=== PATIENT | female | born 1980 | race Caucasian/White ===

== ENCOUNTER 2018-04-21 09:00 | Emergency (ER) | payer OTHER ==
[2018-04-21 09:55] LABS: PLATELET COUNT 210 10^3/uL (150-400)
[2018-04-21 10:52] VITALS: BP 120/71
--- NOTE | 2018-04-21 11:09 | EDPHY ---
H & P Stated Complaint: dizzy SOB Time Seen by Provider: 04/21/18 09:18 HPI/ROS: CHIEF COMPLAINT:"I think it is my heart" HISTORY OF PRESENT ILLNESS: This is a 37-year-old female with a history of attention deficit disorder and what she describes as highly functional autism who presents concerned about chest pain that she describes as heaviness. She also has noticed that her heart is going quickly. She feels that her medical problems began in January after she had an episode of hives and a sore throat. She recovered from this and underwent a sinus surgery. She subsequently developed a cough, sore throat, and a rapid heart rate with some occasional chest pain. She has seen a few doctors with these complaints and at some point she was diagnosed with subacute thyroiditis and was advised to rest. She stopped caffeine and also stop the Ritalin that she had been taking. She reports ongoing fatigue and this morning took 5 mg of Ritalin because she felt tired. Her symptoms began after that. She also notes that yesterday she felt short of breath when she was walking up the stairs. REVIEW OF SYSTEMS: A ten system review of systems was performed and is negative with the exception of the items mentioned in the HPI. Past medical history: 1. ADD 2. Autism Past surgical history: Sinus surgery Family history: Her mother has hyperthyroidism and coronary artery disease runs in the family. Social history: She is employed in [employer]. She states that her job is quite stressful. She does not use tobacco or illicit drugs. She rarely drinks alcohol. General Appearance: Alert. Vital signs reviewed. Anxious. Respiratory rate in the mid 20s. Eyes: Pupils equal and round, no conjunctival injection, no discharge. Anicteric. ENT, Mouth: Mucous membranes are moist, no oropharyngeal erythema or edema. Neck: No lymphadenopathy, supple. No thyromegaly. Respiratory: Lungs are clear to auscultation; no wheezes, rales, or rhonchi. Tachypneic. Cardiovascular: Mildly tachycardic on the monitor her--ranging from the 90s to the low 100s, regular; no murmur, rub, or gallop. Gastrointestinal: Abdomen is soft and nontender, no masses or organomegaly, bowel sounds normal. Skin: Warm and dry, no rashes on exposed skin, normal color. Back: Nontender to palpation over the thoracolumbar spine. No CVAT. Extremities: No lower extremity edema, no calf tenderness or swelling. Neurological: Alert and oriented. Moving all four extremities easily and equally. HALEY L. EOM I. Tongue midline. Facial expressions symmetric. Strength is 5 over 5 bilaterally with testing of all major motor groups. Sensation is intact to light touch over all 4 extremities. Psychiatric: Normal affect. - Personal History LMP (Females 10-55): Extended Cycle BCP/Inj Current Tetanus/Diphtheria Vaccine: Unsure Current Tetanus Diphtheria and Acellular Pertussis (TDAP): Unsure - Medical/Surgical History Hx Asthma: No Hx Chronic Respiratory Disease: No Hx Diabetes: No Hx Cardiac Disease: No Hx Renal Disease: No Hx Cirrhosis: No Hx Alcoholism: No Hx HIV/AIDS: No Hx Splenectomy or Spleen Trauma: No Other PMH: autistic spectrum, ADD - Social History Smoking Status: Never smoked Constitutional: Initial Vital Signs Temperature (C) 37.1 C 04/21/18 09:05 Heart Rate 108 H 04/21/18 09:05 Respiratory Rate 24 H 04/21/18 09:05 Blood Pressure 128/83 H 04/21/18 09:05 O2 Sat (%) 100 04/21/18 09:05 O2 Delivery Mode Room Air Allergies/Adverse Reactions: bacitracin [From Neosporin ([id number])] Allergy (Verified 04/21/18 09:04) neomycin [From Neosporin ([id number])] Allergy (Verified 04/21/18 09:04) polymyxin B [From Neosporin ([id number])] Allergy (Verified 04/21/18 09:04) Home Medications: Medication Instructions Recorded ALPRAZolam [Xanax 0.25 MG (*)] 0.25 mg PO TID PRN #6 tab 04/21/18 Depo-Provera 150 mg/ml (*) 04/21/18 Ritalin 10mg (*) 04/21/18 Medical Decision Making - Diagnostics EKG Interpretation: 12 lead EKG is interpreted in muse by emergency department physician. ED Course/Re-evaluation: 37-year-old patient appears quite anxious about today symptoms. I suspect anxiety is the root of her presentation. She was tachypneic and tachycardic at the time of my initial exam. She did not want to wear non-rebreather mask. During the evaluation she complained about tingling in her fingers. Although my initial impression was that this was an anxiety attack, I agreed to proceed with an evaluation of her heart. An EKG was reviewed by me and I do not appreciate signs of an acute coronary syndrome. An initial troponin is normal. I do not think that a chest x-ray will add to the evaluation. CBC and chemistries were also reviewed as was a TSH, which is normal. Her CO2 was noted to be low. I spoke with her about the possibility of this being anxiety and she agrees that her life is quite stressful at this point in time. She does have an appointment with her primary care physician later this week and plans to keep this appointment. Danger signs were reviewed with her. She is given a prescription for small amount of Xanax to use as needed. She was also provided with a work excuse for today. Differential Diagnosis: Chest pain including but not limited to myocardial ischemia, pulmonary embolus, chest wall pain, pleural inflammation, pulmonary infectious causes, and anxiety. - Data Points Laboratory Results: Laboratory Results 04/21/18 09:45 04/21/18 09:45 Point of Care Test Results: Chemistry 04/21/18 09:48 POC Troponin I 0.00 ng/mL ng/mL (0.00-0.08) Departure - Departure Disposition: Home, Routine, Self-Care Clinical Impression: Anxiety Condition: Good Instructions: Anxiety (ED) Additional Instructions: I am giving you some information about anxiety. This is general information, some of which might apply to you. Today's events do sound very much like a panic or anxiety attack. I am giving you a prescription for a few Xanax that you can use if you are feeling anxious and breathing rapidly. When you breathe rapidly and hyperventilate it make your fingers tingly--sometimes you also develop tingling around your mouth and in your feet. I think that taking Ritalin also contributed to today's symptoms. Be sure that you keep her appointment with Dr. Osorio on Thursday. Talk with her about your fatigue. Referrals: Albertina Osorio MD [Primary Care Provider] - As per Instructions Stand Alone Forms: Work Excuse Prescriptions: ALPRAZolam [Xanax 0.25 MG (*)] 0.25 mg PO TID PRN #6 tab PRN Reason: Anxiety
--- NOTE | 2018-04-21 15:35 | CPEKG ---
Test Reason : OPEN Blood Pressure : / mmHG Vent. Rate : 073 BPM Atrial Rate : 072 BPM P-R Int : 153 ms QRS Dur : 099 ms QT Int : 386 ms P-R-T Axes : -41 062 050 degrees QTc Int : 426 ms Sinus rhythm Abnormal R-wave progression, early transition Confirmed by Fadumo Hope ([id number]) on 04/21/2018 3:35:25 PM Referred By: Confirmed By:Fadumo Hope
== END 2018-04-21 11:26 | disposition home or self-care (01) ==
DX: F41.9 Anxiety disorder, unspecified (principal)
CPT/HCPCS: 84484-PO